=== PATIENT | female | born 1950 | race Caucasian/White ===

== ENCOUNTER → 2018-05-26 13:04 | Outpatient (CLI) | payer MEDICARE, OTHER | END | disposition home or self-care (01) | LOC: D.MRI 05-24 14:30 | DX: M25.561 Pain in right knee (principal) ==

== ENCOUNTER → 2018-08-11 15:02 | Outpatient (CLI) | payer MEDICARE, OTHER | END | disposition home or self-care (01) | LOC: D.MRI 08-08 11:00 | DX: M25.572 Pain in left ankle and joints of left foot (principal) ==